=== PATIENT | male | born 1995 | race Hispanic/Latino ===

== ENCOUNTER 2023-02-20 16:14 | Emergency (ER) | payer OTHER ==
[~2023-02-20] VITALS: Ht 165.1 cm; Wt 72.3 kg
[2023-02-20 16:14] VITALS: BP 121/75; PULSE 72; RESP 16
[2023-02-20] MEDS ORDERED: GLYCOPYRROLATE 1 MG/5 ML SYRINGE ONE (16:49)
[2023-02-20] MEDS ORDERED: NEOSTIGMINE 5MG/5ML SYR IV ONE (16:49)
[2023-02-20] MEDS ORDERED: DEXAMETHASONE SOD PHOSPHATE 4 MG/ML 1ML VIAL IM ONE (17:00)
[2023-02-20 17:11] LABS: RAPID GROUP A STREP negative (NEGATIVE)
[2023-02-20 17:14] LABS: SARS-CoV-2, RNA, NAAT NEGATIVE SARS CoV-2 (NEGATIVE)
[2023-02-20 17:21] LABS: INFLUENZA TYPE A Negative For Type A (NEGATIVE); INFLUENZA TYPE B Negative For Type B (NEGATIVE)
[2023-02-20] MEDS ORDERED: IBUP-2070 PO (17:25)
== END 2023-02-20 17:52 | disposition home or self-care (01) ==
LOC: EDH 16:14
DX: J02.9 Acute pharyngitis, unspecified (principal); M79.10 Myalgia, unspecified site; R53.1 Weakness; Z20.822 Contact with and (suspected) exposure to COVID-19
CPT/HCPCS: 99283; 87635; 87880; 87804 ×2; 96372; J1100; C9803; J3490; J2710